=== PATIENT | male | born 1980 | race Two or more races ===

== ENCOUNTER 2023-10-19 11:45 | Emergency (ER) | payer OTHER ==
[~2023-10-19] VITALS: Ht 165.1 cm; Wt 124.7 kg
[2023-10-19 13:37] LABS: HEMATOCRIT 44.9 % (39.0-48.0); HEMOGLOBIN 15.3 g/dL (13-16.00); MEAN CELL VOLUME 86.1 fL (80.0-100.00); MEAN CORPUSCULAR HEMOGLOBIN 29.4 pg (27.00-32.0); MEAN CORPUSCULAR HGB CONC 34.2 g/dl (32.0-36.0); PLATELET COUNT 298 K/uL (150-450); RED BLOOD COUNT 5.21 M/uL (4.00-6.00)
== END 2023-10-19 14:35 | disposition home or self-care (01) ==
LOC: ER 11:46
PROVIDERS: General Practice
DX: K62.5 Hemorrhage of anus and rectum (principal); K64.8 Other hemorrhoids